=== PATIENT | female | born 1955 | race Caucasian/White ===

== ENCOUNTER 2022-02-05 20:12 | Emergency (ER) | payer BC, OTHER ==
[~2022-02-05] VITALS: Ht 170.2 cm; Wt 76.2 kg
[2022-02-05] MEDS ORDERED: TDAP [DIPH/PERTUSSIS/TET] 0.5 ML VIAL IM ONE ×2 (22:00→22:06)
[2022-02-05] MEDS ORDERED: IBUPROFEN 600 MG TABLET PO ONE (22:00)
--- NOTE | 2022-02-05 22:00 | NUR ---
pt to er c/o left 5th digit pain, lac s/p door closing on finger. no immediate signs of distress noted. pt vital signs stable. breaths equal and unlabored. pt arrived with finger wrapped with gauze. minimal bleeding noted. +cms. will cont to monitor pt.
[2022-02-05] MEDS ORDERED: IBUPROFEN 600 MG TABLET ONE (22:06)
[2022-02-05] MEDS ORDERED: HYDR-3972 PO ×2 (23:13→23:27)
[2022-02-05] MEDS ORDERED: BENZOIN COMPOUND TINCT 60 ML BOTTLE ONE (23:16)
--- NOTE | 2022-02-05 23:49 | NUR ---
Patient discharged to home in stable condition. Written and verbal after care instructions given. Patient verbalizes understanding of instruction.Patient is awake and alert to self, day, and place.Pt ambulatory with a steady gait
[2022-02-06 00:04] VITALS: BP 132/79
== END 2022-02-06 00:05 | disposition home or self-care (01) ==
LOC: ER 20:20
DX: S62.637A Displaced fracture of distal phalanx of left little finger, initial encounter for closed fracture (principal); S67.22XA Crushing injury of left hand, initial encounter; I10 Essential (primary) hypertension; Z88.8 Allergy status to other drugs, medicaments and biological substances; Z79.899 Other long term (current) drug therapy; W23.0XXA Caught, crushed, jammed, or pinched between moving objects, initial encounter; Y93.89 Activity, other specified; Y92.89 Other specified places as the place of occurrence of the external cause; Y99.8 Other external cause status
CPT/HCPCS: 99283; 29130; 90471; 90715; 73140 ×2; A6403